=== PATIENT | female | born 1995 | race Caucasian/White ===

== ENCOUNTER 2021-08-14 18:49 | Observation (INO) | payer OTHER ==
[~2021-08-14] VITALS: Ht 160 cm; Wt 70.8 kg
[2021-08-14] MEDS ORDERED: PREN-176 PO (20:54)
[2021-08-14] MEDS ORDERED: ASPIRIN 81 (20:55)
[2021-08-14] MEDS ORDERED: VITAMIN B (20:55)
[2021-08-14] MEDS ORDERED: HYDR200T80 PO (20:55)
== END 2021-08-14 21:10 | disposition home or self-care (01) ==
LOC: 8 EST LDRP 18:49
PROVIDERS: ADMIT Obstetrics & Gynecology; ATTEND Obstetrics & Gynecology
DX: O34.62 Maternal care for abnormality of vagina, second trimester (principal); Z3A.21 21 weeks gestation of pregnancy
CPT/HCPCS: 59025; 76805; G0378; 99281; G0379

== ENCOUNTER 2021-10-15 17:08 | Observation (INO) | payer MEDICARE ==
[~2021-10-15] VITALS: Ht 170.2 cm; Wt 78.0 kg
[~2021-10-15 17:08] MED LIST: ASPIRIN 81 PO; HYDR200T80 PO; PREN-176 PO; VITAMIN B
[2021-10-15 18:50] LABS: CLARITY URINE CLEAR (CLEAR); COLOR URINE YELLOW (YELLOW); KETONES URINE NEGATIVE (NEGATIVE); LEUKOCYTE ESTERASE URINE 3+ (NEGATIVE); NITRITE URINE NEGATIVE (NEGATIVE); OCCULT BLOOD URINE NEGATIVE (NEGATIVE); PH URINE 6.5 (4.5-8.0); PROTEIN URINE NEGATIVE (NEGATIVE); SPECIFIC GRAVITY URINE 1.013 (1.005-1.030); UROBILINOGEN URINE 0.2 E.U./dL (0.2-1.0)
== END 2021-10-15 19:48 | disposition home or self-care (01) ==
LOC: 8 EST LDRP 17:08
PROVIDERS: ADMIT Obstetrics & Gynecology; ATTEND Obstetrics & Gynecology
DX: O26.893 Other specified pregnancy related conditions, third trimester (principal); R10.30 Lower abdominal pain, unspecified; O99.891 Other specified diseases and conditions complicating pregnancy; M54.50 Low back pain, unspecified; O36.8130 Decreased fetal movements, third trimester, not applicable or unspecified; Z3A.30 30 weeks gestation of pregnancy
CPT/HCPCS: 59025; 76805; 76818; 81003; G0378; 99281; G0379

== ENCOUNTER 2021-11-19 20:22 | Observation (INO) | payer MEDICARE, OTHER ==
[~2021-11-19] VITALS: Ht 160 cm; Wt 80.7 kg
== END 2021-11-19 23:55 | disposition home or self-care (01) ==
LOC: 8 EST LDRP 20:22
PROVIDERS: ADMIT Obstetrics & Gynecology; ATTEND Obstetrics & Gynecology
DX: O36.8130 Decreased fetal movements, third trimester, not applicable or unspecified (principal); Z3A.35 35 weeks gestation of pregnancy
CPT/HCPCS: 59025; 76805; 76818; 82731; G0378; G0379

== ENCOUNTER 2021-12-14 15:16 | Observation (INO) | payer OTHER ==
[~2021-12-14] VITALS: Ht 160 cm; Wt 81.6 kg
== END 2021-12-14 17:20 | disposition home or self-care (01) ==
LOC: 8 EST LDRP 15:16
PROVIDERS: ADMIT Obstetrics & Gynecology; ATTEND Obstetrics & Gynecology
DX: O26.893 Other specified pregnancy related conditions, third trimester (principal); R10.9 Unspecified abdominal pain; O62.9 Abnormality of forces of labor, unspecified; Z3A.38 38 weeks gestation of pregnancy
CPT/HCPCS: 99281; G0378; 59025

== ENCOUNTER 2021-12-19 07:30 | Observation (INO) | payer OTHER ==
[~2021-12-19] VITALS: Ht 160 cm; Wt 81.6 kg
[2021-12-19] MEDS ORDERED: HYDR200T35 PO (08:14)
[2021-12-19] MEDS ORDERED: ALBU90AE (08:14)
[2021-12-19] MEDS ORDERED: CHOL2000 PO (08:14)
[2021-12-19] MEDS ORDERED: PREN1TAB22 PO (08:14)
[2021-12-19] MEDS ORDERED: FERR-63 PO (08:14)
== END 2021-12-19 10:00 | disposition home or self-care (01) ==
LOC: INTOOBSV 07:30 → OBSVTOIN 07:30 → 8 EST LDRP 07:30
PROVIDERS: ADMIT Obstetrics & Gynecology; ATTEND Obstetrics & Gynecology
DX: O26.893 Other specified pregnancy related conditions, third trimester (principal); R10.30 Lower abdominal pain, unspecified; Z79.899 Other long term (current) drug therapy; Z3A.39 39 weeks gestation of pregnancy
CPT/HCPCS: 76815; 76818; 99281; G0378; 59025

== ENCOUNTER 2021-12-22 10:44 | Inpatient (IN) | payer OTHER ==
[~2021-12-22] VITALS: Ht 160 cm; Wt 81.6 kg
[~2021-12-22 10:44] MED LIST changes: +ALBU90AE; -ASPIRIN 81 PO; +CHOL2000 PO; +FERR-63 PO; +HYDR200T35 PO; +PREN1TAB22 PO
[2021-12-22] MEDS ORDERED: LIDOCAINE HCL 1% 20ML VIAL (Pyxis) INJ INFIL SCH (12:00)
[2021-12-22] MEDS ORDERED: DEXT 5%/LR + PITOCIN 20UNITS/L 1,000 ML IV SCH (12:00)
[2021-12-22] MEDS ORDERED: METHYLERGONOVINE MALEATE 0.2 MG/ML IM PRN (12:00)
[2021-12-22] MEDS ORDERED: RHO(D) IMMUNE GLOBULIN 300 MCG/SYR IM ONE (12:00)
[2021-12-22] MEDS ORDERED: CARBOPROST TROMETHAMINE 250 MCG/ML AMPUL IM PRN (12:00)
[2021-12-22 12:22] LABS: CLARITY URINE CLEAR (CLEAR); COLOR URINE YELLOW (YELLOW); KETONES URINE NEGATIVE (NEGATIVE); LEUKOCYTE ESTERASE URINE TRACE (NEGATIVE); NITRITE URINE NEGATIVE (NEGATIVE); OCCULT BLOOD URINE NEGATIVE (NEGATIVE); PH URINE 7.5 (4.5-8.0); PROTEIN URINE NEGATIVE (NEGATIVE); SPECIFIC GRAVITY URINE 1.013 (1.005-1.030); UROBILINOGEN URINE 0.2 E.U./dL (0.2-1.0)
[2021-12-22 12:28] LABS: BASOPHILS % 0.3 % (0.0-2.0); EOSINOPHILS % 0.5 % (0.0-5.0); HEMATOCRIT. 39.4 % (36.0-48.0); HEMOGLOBIN. 13.2 g/dL (12.0-16.0); LYMPHOCYTES % 16.6 % (20.0-50.0); MEAN CORPUSCULAR HEMOGLOBIN 28.8 pg (28.0-32.0); MEAN CORPUSCULAR VOLUME 85.9 fL (81.0-99.0); MONOCYTES % 8.1 % (2.0-8.0); NEUTROPHILS % 74.5 % (40.0-76.0); PLATELET 189 x1000/uL (130-400); RED BLOOD CELL COUNT 4.59 mill/uL (4.2-5.4); RED CELL DISTRIBUTION WIDTH 13.2 % (11.6-14.6)
[2021-12-22 12:34] LABS: PARTIAL THROMBOPLASTIN TIME 29.1 sec (23.4-31.0); PROTHROMBIN TIME 10.7 sec (9.6-11.0)
[2021-12-22 12:36] LABS: *AMPHETAMINES SCREEN URINE NEGATIVE (NEGATIVE); *BARBITURATES SCREEN URINE NEGATIVE (NEGATIVE); *BENZODIAZEPINES SCREEN URINE NEGATIVE (NEGATIVE); *COCAINE SCREEN URINE NEGATIVE (NEGATIVE); CANNABINOID URINE SCREEN NEGATIVE (NEGATIVE); METHADONE URINE SCREEN NEGATIVE (NEGATIVE); OPIATES URINE SCREEN NEGATIVE (NEGATIVE); PHENCYCLIDINE URINE SCREEN NEGATIVE (NEGATIVE)
[2021-12-22] MEDS: LACTATED RINGERS 1,000 ML IV SCH ×2 (12:46→23:04)
[2021-12-22] MEDS: MISOPROSTOL 100MCG TABLET VG SCH ×3 (12:47→21:03)
[2021-12-22 13:00] LABS: HEPATITIS B SURFACE ANTIGEN NEGATIVE
[2021-12-23] MEDS: BUTORPHANOL TARTRATE 2 MG/ML VIAL IV PRN ×2 (01:25→04:18)
[2021-12-23] MEDS: DEXT 5%/LR + PITOCIN 20UNITS/L 1,000 ML IV SCH (02:09)
[2021-12-23] MEDS: LACTATED RINGERS 1,000 ML IV SCH ×3 (06:12→18:02)
[2021-12-23] MEDS ORDERED: ROPIVACAINE HCL/PF EPIDURAL 200 ML EPI ONE (07:21)
[2021-12-23] MEDS ORDERED: ROPIVACAINE HCL/PF EPIDURAL 200 ML EPI SCH (07:45)
[2021-12-23] MEDS: HYDROXYCHLOROQUINE SULFATE 200MG TABLET PO SCH (09:00)
[2021-12-23] MEDS ORDERED: LIDOCAINE HCL 2%/EPINEPHRINE 1:100,000 20 ML VIAL INFIL ONE (09:43)
[2021-12-23] MEDS ORDERED: METHYLERGONOVINE MALEATE 0.2 MG/ML ONE (09:52)
[2021-12-23] MEDS: ACETAMINOPHEN 500MG TABLET PO NR ×2 (17:29→21:41)
[2021-12-23] MEDS ORDERED: CLINDAMYCIN 900 MG in DEXTROSE 5% WATER 50 ML IV SCH (17:30)
[2021-12-23] MEDS ORDERED: FENTANYL CITRATE/PF 50MCG/ML 2ML VIAL ONE (17:42)
[2021-12-23] MEDS: CLINDAMYCIN 900 MG PREMIX 50 ML IV SCH (17:48)
[2021-12-23] MEDS ORDERED: LACTATED RINGERS 1,000 ML IV SCH (21:24)
[2021-12-23] MEDS ORDERED: ONDANSETRON HCL 4MG/2ML INJ ONE (22:47)
[2021-12-23] MEDS ORDERED: SODIUM BICARBONATE 4% (2.4MEQ) 5ML VIAL IV ONE (22:48)
[2021-12-23] MEDS ORDERED: MORPHINE SULFATE/PF 1MG/ML 10ML AMP ONE (22:49)
[2021-12-23] MEDS ORDERED: CLINDAMYCIN 900 MG PREMIX 50 ML IV NR (23:00)
[2021-12-23] MEDS ORDERED: OXYTOCIN 10 UNITS/ML 1ML ONE (23:30)
[2021-12-23] MEDS ORDERED: KETAMINE HCL 50 MG/ML 10ML ONE (23:34)
[2021-12-23] MEDS ORDERED: PROPOFOL 200MG/20ML VIAL IV ONE (23:39)
[2021-12-24] MEDS: DEXT 5%/LR + PITOCIN 20UNITS/L 1,000 ML IV SCH (00:33)
[2021-12-24] MEDS ORDERED: IBUPROFEN 400MG TABLET PO PRN (00:45)
[2021-12-24] MEDS ORDERED: DEXT 5%/LR + PITOCIN 20UNITS/L 1,000 ML IV SCH (00:45)
[2021-12-24] MEDS ORDERED: BISACODYL 10MG SUPP PR PRN (00:45)
[2021-12-24] MEDS ORDERED: ONDANSETRON HCL 4MG/2ML INJ IV PRN (00:45)
[2021-12-24] MEDS ORDERED: HEMORRHOIDAL SUPP PR PRN (00:45)
[2021-12-24] MEDS ORDERED: RHO(D) IMMUNE GLOBULIN 300 MCG/SYR IM PRN (00:45)
[2021-12-24] MEDS ORDERED: DIPHENHYDRAMINE 25MG CAPSULE PO PRN (00:45)
[2021-12-24] MEDS ORDERED: DIPHENHYDRAMINE 50MG/ML VIAL IM PRN (01:15)
[2021-12-24] MEDS ORDERED: NALOXONE HCL 0.4 MG/ML 1ML VIAL IV PRN (01:15)
[2021-12-24] MEDS ORDERED: BUTORPHANOL TARTRATE 2 MG/ML VIAL IV PRN (01:15)
[2021-12-24] MEDS ORDERED: ONDANSETRON HCL 4MG/2ML INJ IM PRN (01:15)
[2021-12-24 04:00] VITALS: BP 109/71
[2021-12-24] MEDS ORDERED: TETANUS, DIPHTHERIA, PERTUSSIS VAC/PF 0.5ML (>10YR OLD) IM ONE (05:15)
[2021-12-24] MEDS ORDERED: HYDROMORPHONE HCL/PF 2MG/ML CPJ IV PRN (05:45)
[2021-12-24] MEDS: CLINDAMYCIN 900 MG PREMIX 50 ML IV SCH ×3 (07:54→23:23)
[2021-12-24] MEDS: MAGNESIUM/ALUMINUM HYDROXIDE/SIMETHICONE 30ML UDC PO SCH ×4 (07:54→21:27)
[2021-12-24] MEDS: SIMETHICONE 80MG TABLET CHEW PO SCH ×4 (07:55→21:27)
[2021-12-24 08:00] VITALS: BP 103/67
[2021-12-24] MEDS: HYDROXYCHLOROQUINE SULFATE 200MG TABLET PO SCH (09:00)
[2021-12-24] MEDS: PRENATAL VIT/FE FUMARATE/FA TABLET PO SCH (12:31)
[2021-12-24] MEDS: IBUPROFEN 800MG TABLET PO PRN ×2 (12:31→21:27)
[2021-12-24] MEDS: ACETAMINOPHEN WITH CODEINE 300/30MG TABLET PO PRN (15:33)
[2021-12-24 16:00] VITALS: BP 101/64
[2021-12-24 20:00] VITALS: BP 101/59
[2021-12-24] MEDS: DOCUSATE SODIUM 100MG CAPSULE PO SCH (21:27)
[2021-12-25] MEDS: IBUPROFEN 800MG TABLET PO PRN ×3 (03:56→17:17)
[2021-12-25 04:00] VITALS: BP 101/60
[2021-12-25] MEDS: ACETAMINOPHEN WITH CODEINE 300/30MG TABLET PO PRN ×2 (06:51→22:04)
[2021-12-25 07:30] VITALS: BP 102/63
[2021-12-25] MEDS: PRENATAL VIT/FE FUMARATE/FA TABLET PO SCH (07:43)
[2021-12-25] MEDS: FERROUS SULFATE 325MG TABLET PO SCH ×3 (07:43→17:16)
[2021-12-25] MEDS: MAGNESIUM/ALUMINUM HYDROXIDE/SIMETHICONE 30ML UDC PO SCH ×4 (07:43→21:30)
[2021-12-25] MEDS: SIMETHICONE 80MG TABLET CHEW PO SCH ×4 (07:43→20:33)
[2021-12-25 08:19] LABS: BASOPHILS % 0.2 % (0.0-2.0); EOSINOPHILS % 0.5 % (0.0-5.0); HEMATOCRIT. 30.9 % (36.0-48.0); HEMOGLOBIN. 10.5 g/dL (12.0-16.0); LYMPHOCYTES % 13.7 % (20.0-50.0); MEAN CORPUSCULAR HEMOGLOBIN 29.2 pg (28.0-32.0); MEAN CORPUSCULAR VOLUME 86.1 fL (81.0-99.0); MEAN PLATELET VOLUME 9.2 fl (7.4-10.4); MONOCYTES % 7.3 % (2.0-8.0); NEUTROPHILS % 78.3 % (40.0-76.0); PLATELET 147 x1000/uL (130-400); RED BLOOD CELL COUNT 3.59 mill/uL (4.2-5.4); RED CELL DISTRIBUTION WIDTH 13.5 % (11.6-14.6)
[2021-12-25] MEDS: HYDROXYCHLOROQUINE SULFATE 200MG TABLET PO SCH (09:12)
[2021-12-25] MEDS ORDERED: LANOLIN OINT 7GM TUBE TOP PRN (10:45)
[2021-12-25 16:30] VITALS: BP 124/64
[2021-12-25 19:00] VITALS: BP 98/63
[2021-12-25] MEDS: DOCUSATE SODIUM 100MG CAPSULE PO SCH (21:30)
[2021-12-26 00:01] VITALS: BP 103/62
[2021-12-26 03:30] VITALS: BP 98/61
[2021-12-26] MEDS: IBUPROFEN 800MG TABLET PO PRN ×2 (03:42→11:24)
[2021-12-26] MEDS ORDERED: IBUP-2030 PO (04:50)
[2021-12-26] MEDS: HYDROXYCHLOROQUINE SULFATE 200MG TABLET PO SCH (09:34)
[2021-12-26] MEDS: PRENATAL VIT/FE FUMARATE/FA TABLET PO SCH (09:34)
[2021-12-26] MEDS: SIMETHICONE 80MG TABLET CHEW PO SCH (09:34)
[2021-12-26] MEDS: FERROUS SULFATE 325MG TABLET PO SCH (09:34)
[2021-12-26 10:00] VITALS: BP 100/61
== END 2021-12-26 11:45 | disposition home or self-care (01) | DRG 540 ==
LOC: OBSVTOIN 10:44 → 8 EST LDRP 10:44 → 8EST 12-24 03:10
PROVIDERS: ADMIT Obstetrics & Gynecology; ATTEND Obstetrics & Gynecology
PROC: 3E0P7GC Introduction of Other Therapeutic Substance into Female Reproductive, Via Natural or Artificial Opening (ICD-10-PCS; 2021-12-22)
PROC: 10D00Z1 Extraction of Products of Conception, Low, Open Approach (ICD-10-PCS; principal; 2021-12-24)
DX: O99.892 Other specified diseases and conditions complicating childbirth (principal); M32.9 Systemic lupus erythematosus, unspecified; O69.81X0 Labor and delivery complicated by cord around neck, without compression, not applicable or unspecified; O69.89X0 Labor and delivery complicated by other cord complications, not applicable or unspecified; Z20.822 Contact with and (suspected) exposure to COVID-19; O61.0 Failed medical induction of labor; Z37.0 Single live birth; Z3A.40 40 weeks gestation of pregnancy
CPT/HCPCS: 36415; 76805; 80305; 81003; 85025; 86592; 86703; 86762; 86850; 86900; 87340; 87426; 88307; 90715; 99281; J0595; J2210; J2274; J2405; J2590; J2704; J2795; J3010; J3490